=== PATIENT | female | born 1990 | race Caucasian/White ===

== ENCOUNTER 2019-12-07 12:03 | Emergency (ER) | payer SELFPAY ==
[2019-12-07 12:47] VITALS: BP 120/79
[2019-12-07 13:42] LABS: Influenza B Molecular POSITIVE (Negative)
--- NOTE | 2019-12-07 13:43 | UC ---
Throat Pain/Nasal Jose HPI - HPI Summary HPI Summary: Patient is a 29yo female presenting with dry cough and sore throat x2 days. Also notes nasal congestion. Denies sob and wheezing. Denies n/v. Denies fever, chills, body aches. Taking tylenol and ibuprofen with some relief. - History of Current Complaint Chief Complaint: UCGeneralIllness Stated Complaint: COUGH, SORE THROAT Hx Obtained From: Patient Hx Last Menstrual Period: 3 weeks ago Pain Intensity: 5 Pain Scale Used: 0-10 Numeric - Allergies/Home Medications Allergies/Adverse Reactions: Allergies Allergy/AdvReac Type Severity Reaction Status Date / Time erythromycin base Allergy Vomiting Verified 12/07/19 12:48 Home Medications: Home Medications Ibuprofen TAB* [Motrin TAB* 400 MG] 400 mg PO Q6H PRN 12/07/19 [History Confirmed 12/07/19] PMH/Surg Hx/FS Hx/Imm Hx - Surgical History Surgical History: Yes Surgery Procedure, Year, and Place: tubes in ears, tonsils - Social History Alcohol Use: Weekly Substance Use Type: None Smoking Status (MU): Never Smoked Tobacco Review of Systems All Other Systems Reviewed And Are Negative: Yes Constitutional: Positive: Negative ENT: Positive: Sore Throat, Sinus Congestion Respiratory: Positive: Cough. Negative: Shortness Of Breath Cardiovascular: Positive: Negative Gastrointestinal: Positive: Negative Musculoskeletal: Negative: Myalgia Neurological: Negative: Headache Physical Exam - Summary Physical Exam Summary: Vital Signs Reviewed: Yes A+Ox3, no distress, well-appearing Eyes: Conjunctiva Clear ENT: Hearing grossly normal TM x 2 clear, moist, uvula midline, no exudate, + pharyngeal erythema Neck: Positive: Supple Respiratory: Positive: No respiratory distress, No accessory muscle use + CTA throughout no w/r Cardiovascular: RRR nl s1, s2 no m/r Musculoskeletal Exam: GONCALVES x 4 without difficulty Neurological: Positive: Alert Psychological: Positive: age appropriate behavior Skin: Positive: no rash, no ecchymosis Vital Signs: Initial Vital Signs Temp 99.3 F 12/07/19 12:43 Pulse 75 12/07/19 12:43 Resp 16 12/07/19 12:43 BP 120/79 12/07/19 12:43 Pulse Ox 100 12/07/19 12:43 Lab Results 12/07/19 12/07/19 Range/Units 13:38 13:40 Influenza B (Rapid) Positive A (Negative) Group A Strep Rapid Negative (Negative) Throat Pain/Nasal Course/Dx - Course Course Of Treatment: Positive rapid flu B. Negative strep test. Educated patient on influenza and tamiflu. Patient prefers to take tamiflu at this time. I prescribed tamiflu and educated on symptomatic treatment. Instructed to follow up if symptoms worsen or persist. Patient voiced understanding and agreed with treatment plan. - Differential Dx/Diagnosis Differential Diagnosis/HQI/PQRI: Influenza, Pharyngitis, URI Provider Diagnosis: Influenza B Discharge ED - Sign-Out/Discharge Documenting (check all that apply): Patient Departure All imaging exams completed and their final reports reviewed: No Studies - Discharge Plan Condition: Stable Disposition: HOME Prescriptions: Oseltamivir CAP* [Tamiflu CAP*] 75 mg PO BID #10 cap Patient Education Materials: Influenza (ED) Referrals: Elgin Mojica MD [Primary Care Provider] - If Needed Additional Instructions: You tested positive for influenza today. Take tamiflu as prescribed. You may continue with motrin for fever and pain relief. Get plenty of rest and increase your fluid intake. Follow up with your primary care provider or [facility] listed below if symptoms worsen or do not resolve within 5-7 days. - Billing Disposition and Condition Condition: STABLE Disposition: Home
== END 2019-12-07 14:03 | disposition home or self-care (01) ==
LOC: UCEAST 12:03
DX: J10.1 Influenza due to other identified influenza virus with other respiratory manifestations (principal); Z88.1 Allergy status to other antibiotic agents
CPT/HCPCS: 87651; 99202; G0463